=== PATIENT | female | born 1980 | race Caucasian/White ===

== ENCOUNTER → 2021-06-02 | Day surgery (SDC) | payer OTHER ==
[~2021-06-02] VITALS: Ht 177.8 cm; Wt 56.7 kg
[2021-06-02 07:46] LABS: HCG (URINE) SCREEN NEGATIVE (NEGATIVE)
== END | disposition home or self-care (01) ==
LOC: FAS 07:21
PROVIDERS: Anesthesiology
DX: R10.11 Right upper quadrant pain (principal); K31.9 Disease of stomach and duodenum, unspecified; R93.2 Abnormal findings on diagnostic imaging of liver and biliary tract; R11.2 Nausea with vomiting, unspecified; K59.00 Constipation, unspecified; R19.7 Diarrhea, unspecified; K21.9 Gastro-esophageal reflux disease without esophagitis; F17.200 Nicotine dependence, unspecified, uncomplicated; Z82.49 Family history of ischemic heart disease and other diseases of the circulatory system
CPT/HCPCS: 84703; J2250; J2704; J7120

== ENCOUNTER → 2021-07-01 | Day surgery (SDC) | payer OTHER ==
[~2021-07-01] VITALS: Ht 177.8 cm; Wt 56.7 kg
[~2021-07-01] MED LIST: PERCOCET 5-3251 EACH PO
[2021-07-01 08:40] LABS: HCG (URINE) SCREEN NEGATIVE (NEGATIVE)
== END | disposition home or self-care (01) ==
LOC: FAS 08:00
PROVIDERS: Surgery
DX: K81.1 Chronic cholecystitis (principal); F17.210 Nicotine dependence, cigarettes, uncomplicated; K59.00 Constipation, unspecified; Z20.822 Contact with and (suspected) exposure to COVID-19; K66.0 Peritoneal adhesions (postprocedural) (postinfection)
CPT/HCPCS: 84703; 93005; J0295; J1100; J1885; J2250; J2405; J2704; J2710; J3010; J7120; U0002